=== PATIENT | male | born 1995 | race Two or more races ===

== ENCOUNTER 2018-04-11 10:43 | Emergency (ER) | payer OTHER, MEDICAID ==
[~2018-04-11] VITALS: Ht 180.3 cm; Wt 83.9 kg
--- NOTE | 2018-04-11 10:59 | NUR ---
ED Nurse Note: Pt came here due to hitting his LLQ on the corner of the table. Complaining of 4/10 pain. Non radiating. No edema at the site noted. A + O x4. Ambulatory. VSS.
[2018-04-11 11:01] VITALS: BP 120/75
[2018-04-11] MEDS ORDERED: Methocarbamol 750mg tab ORAL ONE (11:30)
[2018-04-11] MEDS ORDERED: IBUPROFEN600 MG ORAL (11:41)
[2018-04-11] MEDS ORDERED: ROBAXIN-750750 MG PO (11:41)
[2018-04-11 11:47] VITALS: BP 120/87
--- NOTE | 2018-04-11 11:47 | NUR ---
ED Nurse Note: Discharge instructions given to pt. Answered all questions. Verbalized understanding. A + O x4. Ambulatory. ID band and Iv site removed. Left with all belongings. Left ER w/ steady gait.
--- NOTE | 2018-04-12 07:32 | Emergency Room Report ---
History of Present Illness General Chief Complaint: Abdominal Pain Source: Patient Present Illness HPI 22-year-old male presents ED for evaluation. Complaining of left-sided abdominal pain. Started 2 days ago after lifting heavy table. Pain is aching, 5 out of 10, nonradiating. Worse with twisting and bending. Denies nausea or vomiting. States he has good energy and good appetite. Normal bowel movements. Passing flatus. No other aggravating relieving factors. Denies any other associated symptoms Allergies: Coded Allergies: No Known Allergies (Unverified , 04/11/18) Patient History Past Medical History: none Past Surgical History: none Pertinent Family History: none Social History: Denies: smoking, alcohol use, drug use Immunizations: UTD Reviewed Nursing Documentation: PMH: Agreed; PSxH: Agreed Review of Systems All Other Systems: negative except mentioned in HPI Physical Exam Vital Signs Date Time Temp Pulse Resp B/P (MAP) Pulse Ox O2 Delivery O2 Flow Rate FiO2 04/11/18 10:46 97.9 71 18 124/71 98 Room Air 04/11/18 11:01 100 Sp02 EP Interpretation: reviewed, normal General Appearance: no apparent distress, alert, GCS 15, non-toxic Head: normocephalic Eyes: bilateral eye normal inspection, bilateral eye PERRL ENT: normal ENT inspection Neck: normal inspection Respiratory: chest non-tender, lungs clear, normal breath sounds, speaking full sentences Cardiovascular #1: regular rate, rhythm, no edema Gastrointestinal: normal bowel sounds, soft, non-distended, no guarding, no rebound, tenderness Rectal: deferred Genitourinary: no CVA tenderness, other - no inguinal swelling Musculoskeletal: back normal, gait/station normal, normal range of motion, non- tender Neurologic: alert, oriented x3, responsive, motor strength/tone normal, sensory intact, speech normal Psychiatric: normal inspection Skin: normal inspection Lymphatic: normal inspection Medical Decision Making Diagnostic Impression: Primary Impression: Abdominal wall strain Qualified Codes: S39.011A - Strain of muscle, fascia and tendon of abdomen, initial encounter ER Course Hospital Course 22 yo M presents with L sided abd pain s/p lifting heavy table Differential diagnoses include: diverticulitis, hernia, strain Clinical course Patient placed on stretcher. After initial history, physical exam reveals a young male in no acute distress. On exam there is some tenderness to the abdomen wall on the left side. Abdomen is otherwise soft. No guarding or rebound. No inguinal pain or swelling. No scrotal swelling. When patient flexes his abdomen to see no evidence of a hernia Discussed findings with patient. Unlikely abdominal process as symptoms started immediately after lifting heavy object. Consideration for hernia however there is no evidence of a hernia on exam. No signs of obstruction. Likely scenario is abdominal wall muscle strain At this time given benign exam no signs of obstruction I don't see reason to perform CT scan at this time. patient agrees Discussed with patient that he needs to modify activity. Wear a weight belt for work. Close follow-up with PMD. If symptoms get worse such as he develops a bulge in his lower abdomen, develops nausea or vomiting, or fever patient have to come back to the ER. Diagnosis - abdominal wall strain stable and discharged to home with prescription for motrin, Robaxin. modified activity. Followup with PMD. Return to ED if symptoms recur or worsen Last Vital Signs Date Time Temp Pulse Resp B/P (MAP) Pulse Ox O2 Delivery O2 Flow Rate FiO2 04/11/18 11:47 97.5 77 20 120/87 100 Room Air 04/11/18 11:01 100 Status: improved Disposition: HOME, SELF-CARE Condition: Stable Scripts Methocarbamol* (ROBAXIN-750*) 750 Mg Tablet 750 MG PO TID, #21 TAB 0 Refills Prov: Chuck Corral MD 04/11/18 Ibuprofen* (MOTRIN*) 600 Mg Tablet 600 MG ORAL Q8H PRN for For Pain, #30 TAB 0 Refills Prov: Chuck Corral MD 04/11/18 Departure Forms: Return to Work Return to Work Date: Apr 13, 2018 Work Restrictions: No Heavy Lifting Patient Instructions: Hernia, Adult, Muscle Strain, [id number] Chuck Corral MD Apr 12, 2018 07:32
== END 2018-04-11 11:47 | disposition home or self-care (01) ==
LOC: EMR 11:10
DX: S39.011A Strain of muscle, fascia and tendon of abdomen, initial encounter (principal); X50.0XXA Overexertion from strenuous movement or load, initial encounter; Y92.9 Unspecified place or not applicable
CPT/HCPCS: 99282

== ENCOUNTER 2018-04-26 10:45 | Emergency (ER) | payer MEDICAID ==
[~2018-04-26] VITALS: Ht 180.3 cm; Wt 83.9 kg
[~2018-04-26 10:45] MED LIST: IBUPROFEN600 MG ORAL; ROBAXIN-750750 MG PO
--- NOTE | 2018-04-26 11:05 | NUR ---
ED Nurse Note: patient walked into ED to recheck of pulled muscle to left side. pt cannot get into his pmd until next month and his work needs his clearance sooner., pt denies pain at this time
--- NOTE | 2018-04-26 11:12 | Emergency Room Report ---
History of Present Illness General Chief Complaint: General Complaint Source: Patient Present Illness HPI This patient states he was seen previously by another physician here at [facility] emergency department. He was given an off work note. He states that he use the anti-inflammatories and rest in a states he feels much better and is ready to go back to work. However, when he tried to go back to work he needed a clearance for work. He is requesting clearance to go back to work. He states he has no pain and no further complaints. His symptoms have completely resolved. Allergies: Coded Allergies: No Known Allergies (Unverified , 04/11/18) Patient History Past Medical History: none, see triage record Social History: Denies: smoking, alcohol use, drug use Reviewed Nursing Documentation: PMH: Agreed; PSxH: Agreed Nursing Documentation-PMH Past Medical History: No Stated History Review of Systems All Other Systems: negative except mentioned in HPI Physical Exam Vital Signs Date Time Temp Pulse Resp B/P (MAP) Pulse Ox O2 Delivery O2 Flow Rate FiO2 04/26/18 10:55 98.4 56 18 125/76 98 Nasal Cannula Sp02 EP Interpretation: reviewed, normal General Appearance: no apparent distress, alert, GCS 15, non-toxic Head: normocephalic, atraumatic Eyes: bilateral eye normal inspection, bilateral eye PERRL ENT: hearing grossly normal, normal pharynx, no angioedema, normal voice Neck: full range of motion, supple/symm/no masses Respiratory: no respiratory distress, no retraction, no accessory muscle use, speaking full sentences Rectal: deferred Musculoskeletal: back normal, gait/station normal, normal range of motion, non- tender Neurologic: alert, oriented x3, responsive, motor strength/tone normal, sensory intact, speech normal Psychiatric: judgement/insight normal, memory normal, mood/affect normal, no suicidal/homicidal ideation Skin: normal color, no rash, warm/dry, well hydrated Medical Decision Making Diagnostic Impression: Primary Impression: Muscle strain ER Course This patient has had resolution of the muscle strain that he had been diagnosed with previously. He is requesting a note to return to work. He has a normal exam and is asymptomatic. He was given a return to work note. Patient is given return precautions and follow-up instructions. Last Vital Signs Date Time Temp Pulse Resp B/P (MAP) Pulse Ox O2 Delivery O2 Flow Rate FiO2 04/26/18 10:55 98.4 56 18 125/76 98 Nasal Cannula Disposition: HOME, SELF-CARE Condition: Improved Departure Forms: Return to Work Return to Work in (Days): 0 Return to Work Date: Apr 26, 2018 Work Restrictions: None Patient Instructions: Form - Medical Authorization and Consent to Treat a Child Georgia Lauren DO Apr 26, 2018 11:12
--- NOTE | 2018-04-26 11:30 | NUR ---
ED Nurse Note: Patient is being discharged, cleared by ERMD Dr. Lauren. Discharge instructions/paper given, explained, patient verbalized understanding, received signature on the paper. ID band removed. Patient ambulated out of ED with steady gait with all belongings.
[2018-04-26 11:51] VITALS: BP 125/76
[2018-04-26 11:53] VITALS: BP 125/76
== END 2018-04-26 11:30 | disposition home or self-care (01) ==
LOC: EMR 11:20
DX: Z02.79 Encounter for issue of other medical certificate (principal)
CPT/HCPCS: 99281